=== PATIENT | female | born 1940 | race Caucasian/White ===

== ENCOUNTER 2017-01-06 18:09 | Inpatient (IN) | payer MEDICARE, OTHER ==
[2017-01-06] MEDS ORDERED: IPRATROPIUM/ALBUTEROL (0.5MG/3MG) NEB INH ONE (18:24)
[2017-01-06] MEDS ORDERED: 0.9% SODIUM CHLORIDE 250ML BAG IV ONE (18:24)
--- NOTE | 2017-01-06 18:24 | Emergency Department Record ---
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 On 12-26-16 she had an endovascular AAA repair/fem pop stents by Dr. Chahal at [facility]. She was sent home the next day. She has had a cough which has been progressively worsening and now is productive of green yellow sputum. The coughing spells are worsening and now her abdomen and chest ache when coughing spasms occur. She states she is dizzy when she changes position to stand or sit up. She has exertional SOB which is now increased in severity. She denies f,c,n,v,d. she has a history of [id number] three times, infer MA on her EKG, htn, chol elevation, and is a smoker since she was 19 years old. MD Complaint: Cough, Shortness of breath - Related Data Allergies Allergy/AdvReac Type Severity Reaction Status Date / Time fentanyl [FENTANYL] Allergy Mild VOMITING Unverified 02/11/16 13:43 citalopram hydrobromide AdvReac Mild SHORTNESS Verified 02/11/16 13:44 [From Celexa] OF BREATH diazepam [From Valium] AdvReac Mild SHORTNESS Verified 02/11/16 13:43 OF BREATH Review of Systems Reviewed: No additional complaints except as noted below Constitutional: Reports: As per HPI. Denies: Chills, Fever, Malaise, Night sweats, Weakness, Weight change Eyes: Reports: As per HPI. Denies: Eye discharge, Eye pain, Photophobia, Vision change ENT: Reports: As per HPI. Denies: Congestion, Dental pain, Ear pain, Epistaxis , Hearing loss, Throat pain Respiratory: Reports: As per HPI. Denies: Cough, Dyspnea, Hemoptysis, Stridor, Wheezes Cardiovascular: Reports: As per HPI. Denies: Arrhythmia, Chest pain, Dyspnea on exertion, Edema, Murmurs, Orthopnea, Palpitations, Paroxysmal nocturnal dyspnea, Rheumatic Fever, Syncope Endocrine: Reports: As per HPI. Denies: Fatigue, Heat or cold intolerance, Polydipsia, Polyuria Gastrointestinal: Reports: As per HPI. Denies: Abdominal pain, Constipation, Diarrhea, Hematemesis, Hematochezia, Melena, Nausea, Vomiting Genitourinary: Reports: As per HPI. Denies: Abnormal menses, Discharge, Dyspareunia, Dysuria, Frequency, Hematuria, Incontinence, Retention, Urgency Musculoskeletal: Reports: As per HPI. Denies: Arthralgia, Back pain, Gout, Joint swelling, Myalgia, Neck pain Skin: Reports: As per HPI. Denies: Bruising, Change in color, Change in hair/ nails, Lesions, Pruritus, Rash Neurological: Reports: As per HPI. Denies: Abnormal gait, Confusion, Headache, Numbness, Paresthesias, Seizure, Tingling, Tremors, Vertigo, Weakness Psychiatric: Reports: As per HPI. Denies: Anxiety, Auditory hallucinations, Depression, Homicidal thoughts, Suicidal thoughts, Visual hallucinations Hematological/Lymphatic: Reports: As per HPI. Denies: Anemia, Blood Clots, Easy bleeding, Easy bruising, Swollen glands Past Medical History - SOCIAL HISTORY Smoking Status: Current every day smoker - RESPIRATORY Hx Respiratory Disorders: Yes Hx COPD: Yes Comment:: benign nodule RLL - CARDIOVASCULAR Hx Cardio Disorders: Yes Hx Chest Pain: Yes (stress test neg 2012) Hx Heart Attack: Yes (shows up on EKGs but not sure when actually had) Hx Hypertension: Yes Comment:: AAA found recently 10/2015 - NEURO Hx Neuro Disorders: No - GI Hx GI Disorders: Yes Hx Ulcer: Yes Hx of Polyps: Yes Comment:: gas - Hx Genitourinary Disorders: Yes Hx Kidney Stones: Yes - ENDOCRINE Hx Endocrine Disorders: Yes Hx Thyroid Disease: Yes Comment:: hypoglycemia - MUSCULOSKELETAL Hx Musculoskeletal Disorders: Yes Hx Arthritis: Yes - PSYCH Hx Psych Problems: No - HEMATOLOGY/ONCOLOGY Hx Hematology/Oncology Disorders: No Family Medical History Hx Cancer: Mother, Brother/Sister *Cancer Comment: ovarian, lung Hx Diabetes: Brother/Sister Hx Heart Disease: Father *Heart Comment: [place] Physical Exam - General General Appearance: Alert, Oriented x3, Cooperative, Mild distress (speaks full sentences, no diaphoresis, talkative) - Head Head exam: Normal inspection - Eye Eye exam: Normal appearance, PERRL Pupils: Normal accommodation - ENT ENT exam: Normal exam, Mucous membranes moist, Normal external ear exam, Normal orophraynx, TM's normal bilaterally Ear exam: Normal external inspection. negative: External canal tenderness Nasal Exam: Normal inspection. negative: Discharge, Sinus tenderness Mouth exam: Normal external inspection, Tongue normal Teeth exam: Normal inspection. negative: Dental caries Throat exam: Normal inspection. negative: Tonsillar erythema, Tonsillomegaly, Tonsillar exudate - Neck Neck exam: Normal inspection, Full ROM. negative: Lymphadenopathy, Meningismus , Tenderness - Respiratory Respiratory exam: Decreased breath sounds, Prolonged expiratory, Rhonchi. negative: Respiratory distress - Cardiovascular Cardiovascular Exam: Regular rate, Normal rhythm, Normal heart sounds - GI/Abdominal GI/Abdominal exam: Soft, Normal bowel sounds. negative: Tenderness - Rectal Rectal exam: Deferred - exam: Deferred - Extremities Extremities exam: Normal inspection, Full ROM, Normal capillary refill. negative: Calf tenderness, Pedal edema, Tenderness - Back Back exam: Reports: Normal inspection, Full ROM. Denies: Muscle spasm, Rash noted, Tenderness - Neurological Neurological exam: Alert, Normal gait, Oriented X3, Reflexes normal - Psychiatric Psychiatric exam: Normal affect, Normal mood - Skin Skin exam: Dry, Intact, Normal color, Warm Course - Reevaluation(s) Reevaluation #1: Feeling improved after nebulizer. Ready to go to xray. 01/06/17 18:59 Reevaluation #2: spoke with Anuja CARR/ for Dr. Delgado who accepts patient for full admit. 01/06/17 20:19 Reevaluation #3: Discussed results with patient and her son who agrees with admission. Patient improved with IV fluids infusing. 01/06/17 20:22 Medical Decision Making - Management Options [facility] Management: Additional Work-up Planned (e.g. ADM/Transfer/OP Study) (admit) - Data Complexity MDM Data: Labs Ordered and/or Reviewed, X-Ray Ordered and/or Reviewed (CXR: RLL infiltrate/atelactasis per radiologist.), EKG Ordered and/or Reviewed - Lab Data Result diagrams: 01/06/17 18:34 01/06/17 18:34 - EKG Data -: EKG Interpreted by Sc EKG: No Acute Changes Disposition Disposition: Admit Clinical Impression: Right lower lobe pneumonia Qualifiers: Pneumonia type: due to unspecified organism Qualified Code(s): J18.1 - Lobar pneumonia, unspecified organism COPD (chronic obstructive pulmonary disease) Qualifiers: COPD type: COPD with acute lower respiratory infection Qualified Code(s): J44.0 - Chronic obstructive pulmonary disease with acute lower respiratory infection Disposition: Still a Patient at [facility] Decision to Admit: Admit from ER Decision to Admit Date: 01/06/17 Decision to Admit Time: 20:21 Accepting Physician: Dr. Delgado/Anuja Yang Time Discussed w/Accepting Physician: 20:21 Condition: (2) Stable Forms: Patient Portal Access
[2017-01-06 18:46] LABS: BASO % 0.2 % (0-6); EOS % 2.7 % (0-6); GRAN % 71.3 % (47-80); HEMATOCRIT 40.3 % (35.0-47.0); HEMOGLOBIN 13.1 gm/dl (11.6-16.0); LYMPH % 18.5 % (16-45); MEAN CELL VOLUME 85.6 fl (81-97); MEAN CORPUSCULAR HEMOGLOBIN 27.8 pg (27-33); MEAN CORPUSCULAR HGB CONC 32.5 g/dl (32-36); MEAN PLATELET VOLUME 12.2 fl (7.4-10.4); MONO % 7.3 % (0-9); PLATELET COUNT 237 K/uL (130-400); RED BLOOD COUNT 4.71 M/uL (3.80-5.40); RED CELL DISTRIBUTION WIDTH 13.9 % (11.5-14.5)
[2017-01-06] MEDS ORDERED: AZITHROMYCIN 500 MG TABLET PO ONE (18:54)
[2017-01-06] MEDS ORDERED: CEFTRIAXONE SODIUM 2 GM in 0.9 % SODIUM CHLORIDE 100ML 100 ML IVPB ONE (18:54)
[2017-01-06 18:55] LABS: INR 0.95; PROTHROMBIN TIME (PATIENT) 10.7 SECONDS (9.5-12.1)
[2017-01-06 18:56] LABS: LACTIC ACID 0.9 mmol/L (0.7-2.1)
[2017-01-06 18:58] LABS: BLOOD UREA NITROGEN 16 mg/dL (7-17); CREATINE PHOSPHOKINASE 47 U/L (30-135); CREATININE 0.7 mg/dL (0.52-1.04); EST GLOMERULAR FILTRATION RATE > 60 ml/min; GLUCOSE,RANDOM 91 mg/dL (70-110)
[2017-01-06 19:10] LABS: CKMB 1.2 ug/L (0-6); TROPONIN I < 0.012 ng/mL (0.00-0.034)
[2017-01-06] MEDS ORDERED: 0.9 % SODIUM CHLORIDE 500ML 500 ML IV SCH (19:15)
[2017-01-06] MEDS ORDERED: METHYLPREDNISOLONE PF 125MG/VIAL IVP ONE (20:19)
[2017-01-06 20:31] LABS: URINE APPEARANCE CLEAR; URINE BILIRUBIN NEGATIVE (NEGATIVE); URINE BLOOD TRACE-I (NEGATIVE); URINE COLOR YELLOW; URINE GLUCOSE (UA) NEGATIVE (NEGATIVE); URINE KETONE NEGATIVE (NEGATIVE); URINE LEUKOCYTE ESTERASE SMALL (NEGATIVE); URINE NITRITE NEGATIVE (NEGATIVE); URINE PROTEIN NEGATIVE (NEGATIVE); URINE UROBILINOGEN 0.2 E.U./dL (0.20 - 1.00)
[2017-01-06 20:44] LABS: URINE BACTERIA FEW; URINE RBC 0 - 2 (NONE SEEN); URINE SQUAMOUS EPITHELIAL CELL 0 - 2 /hpf
[2017-01-06] MEDS ORDERED: ACETAMINOPHEN 500 MG TABLET PO PRN (21:01)
[2017-01-06] MEDS ORDERED: CEFTRIAXONE SODIUM 2 GM in 0.9 % SODIUM CHLORIDE 100ML 100 ML IVPB SCH (21:01)
[2017-01-06] MEDS ORDERED: LEVOFLOXACIN/D5W 750 MG/150 ML BAG IVPB SCH (21:01)
[2017-01-06] MEDS ORDERED: 0.9 % SODIUM CHLORIDE 1000ML 1,000 ML IV PRN (21:01)
[2017-01-06] MEDS ORDERED: ASPIRIN 81 MG CHEWABLE TABLET PO SCH (22:00)
[2017-01-06] MEDS ORDERED: SIMVASTATIN 20 MG TABLET PO SCH (22:00)
[2017-01-06] MEDS ORDERED: CLOPIDOGREL 75MG TABLET PO SCH (22:00)
[2017-01-06] MEDS ORDERED: LISINOPRIL 10 MG TABLET PO SCH (22:00)
[2017-01-06] MEDS ORDERED: CARVEDILOL 3.125 MG TABLET PO SCH (22:00)
[2017-01-06] MEDS: IPRATROPIUM/ALBUTEROL (0.5MG/3MG) NEB INH SCH (22:17)
[2017-01-07 05:55] LABS: HEMATOCRIT 37.9 % (35.0-47.0); HEMOGLOBIN 12.5 gm/dl (11.6-16.0); MEAN CELL VOLUME 85.4 fl (81-97); MEAN CORPUSCULAR HEMOGLOBIN 28.2 pg (27-33); PLATELET COUNT 220 K/uL (130-400); RED BLOOD COUNT 4.44 M/uL (3.80-5.40); RED CELL DISTRIBUTION WIDTH 13.7 % (11.5-14.5); WHITE BLOOD COUNT W/O DIFF 9.6 K/uL (4.2-12.2)
[2017-01-07] MEDS: IPRATROPIUM/ALBUTEROL (0.5MG/3MG) NEB INH SCH ×2 (06:09→10:11)
[2017-01-07] MEDS ORDERED: LEVOTHYROXINE SODIUM 75 MCG TABLET PO SCH (07:00)
--- NOTE | 2017-01-07 08:43 | History & Physical ---
History of Present Illness - Date of Service Date of Service for History & Physical: 01/07/17 - History of Present Illness Admitting Diagnosis: RLL pneumonia; COPD exacerbation History of Present Illness: 76 yo female admitted for RLL pneumonia. PMHx of COPD, HTN, CAD, hypothyroidism , HLD, carotid stenosis, and smoker (1/2-1ppd x ~60 years). Endovascular AAA repair/ femoral pop stents by Dr. Chahal out of [place] on 12/26/16. Patient presented to our ED for green productive cough. onset 2 days ago. alleviated by nothing associated symptoms include fatigue. Temp 99.1, RR 20, O2 sat 96% on RA upon presentation. normal wbc, 92% neutrophils. TSH 6.10. CE negative. UA: small leuks, neg nitrites, cx sent. BC and sputum cx obtained. EKG: NSR, old inferior infarct. CXR: R lung base atelectasis. 01/07/17: this morning, patient is up walking the halls. states she's feeling much better. tolerating ambulation well. continues to cough up green sputum. denies shortness of breath, chest pain, fever, chills, n/v, abd pain, change in bowel habits or unintentional weight loss. Patient very anxious to get home. states she can't get good sleep as our beds are uncomfortable. No sick contacts or recent travel. Hospitalized 12/26/16 for 24 hours after AAA repair/ femoral pop stent placement. Has smoked 1/2-2 ppd since she was 19 yo. Is not currently on any COPD medications. Travel Screening - Travel/Exposure Within Last 30 Days Have you traveled within the last 30 days?: No - Travel/Exposure Within Last Year Have you traveled outside the [place] in the last year?: No - Additonal Travel Details Have you been exposed to anyone with a communicable illness?: No - Travel Symptoms Symptom Screening: None Review of Systems Constitutional: Reports: As per HPI. Denies: Chills, Fever, Malaise, Night sweats, Weakness, Weight change Eyes: Reports: As per HPI. Denies: Eye discharge, Eye pain, Photophobia, Vision change ENT: Reports: As per HPI. Denies: Congestion, Dental pain, Ear pain, Epistaxis , Hearing loss, Throat pain Respiratory: Reports: As per HPI. Denies: Cough, Dyspnea, Hemoptysis, Stridor, Wheezes Cardiovascular: Reports: As per HPI. Denies: Arrhythmia, Chest pain, Dyspnea on exertion, Edema, Murmurs, Orthopnea, Palpitations, Paroxysmal nocturnal dyspnea, Rheumatic Fever, Syncope Endocrine: Reports: As per HPI. Denies: Fatigue, Heat or cold intolerance, Polydipsia, Polyuria Gastrointestinal: Reports: As per HPI. Denies: Abdominal pain, Constipation, Diarrhea, Hematemesis, Hematochezia, Melena, Nausea, Vomiting Genitourinary: Reports: As per HPI. Denies: Abnormal menses, Discharge, Dyspareunia, Dysuria, Frequency, Hematuria, Incontinence, Retention, Urgency Musculoskeletal: Reports: As per HPI. Denies: Arthralgia, Back pain, Gout, Joint swelling, Myalgia, Neck pain Skin: Reports: As per HPI. Denies: Bruising, Change in color, Change in hair/ nails, Lesions, Pruritus, Rash Neurological: Reports: As per HPI. Denies: Abnormal gait, Confusion, Headache, Numbness, Paresthesias, Seizure, Tingling, Tremors, Vertigo, Weakness Psychiatric: Reports: As per HPI. Denies: Anxiety, Auditory hallucinations, Depression, Homicidal thoughts, Suicidal thoughts, Visual hallucinations Hematological/Lymphatic: Reports: As per HPI. Denies: Anemia, Blood Clots, Easy bleeding, Easy bruising, Swollen glands Past Medical History - SOCIAL HISTORY Smoking Status: Current every day smoker Alcohol Use: Rare, Occassional Drug Use: None - RESPIRATORY Hx Respiratory Disorders: Yes Hx COPD: Yes Comment:: benign nodule RLL - CARDIOVASCULAR Hx Cardio Disorders: Yes Hx Chest Pain: Yes (stress test neg 2012) Hx Heart Attack: Yes (shows up on EKGs but not sure when actually had) Hx Hypertension: Yes Comment:: AAA found recently 10/2015 - NEURO Hx Neuro Disorders: No - GI Hx GI Disorders: Yes Hx Ulcer: Yes Hx of Polyps: Yes Comment:: gas - Hx Genitourinary Disorders: Yes Hx Kidney Stones: Yes - ENDOCRINE Hx Endocrine Disorders: Yes Hx Thyroid Disease: Yes Comment:: hypoglycemia - MUSCULOSKELETAL Hx Musculoskeletal Disorders: Yes Hx Arthritis: Yes - PSYCH Hx Psych Problems: No - HEMATOLOGY/ONCOLOGY Hx Hematology/Oncology Disorders: No Family Medical History Any Significant Family History?: No Hx Cancer: Mother, Brother/Sister *Cancer Comment: ovarian, lung Hx Diabetes: Brother/Sister Hx Heart Disease: Father *Heart Comment: [place] H&P Meds/Allergies - Allergies Allergies: Allergies Allergy/AdvReac Type Severity Reaction Status Date / Time fentanyl [FENTANYL] Allergy Mild VOMITING Unverified 02/11/16 13:43 citalopram hydrobromide AdvReac Mild SHORTNESS Verified 02/11/16 13:44 [From Celexa] OF BREATH diazepam [From Valium] AdvReac Mild SHORTNESS Verified 02/11/16 13:43 OF BREATH - Home Medications Home Medications Medication Instructions Recorded Confirmed Last Taken Aspirin [Aspir-Low] 81 mg PO QHS 01/06/17 01/06/17 Unknown Carvedilol [Coreg] 3.125 mg PO BID 01/06/17 01/06/17 Unknown Clopidogrel Bisulfate [Clopidogrel] 75 mg PO QHS 01/06/17 01/06/17 Unknown Hydrochlorothiazide 25 mg PO QAM 01/06/17 01/06/17 Unknown Levothyroxine Sodium [Synthroid] 75 mcg PO DAILY 01/06/17 01/06/17 Unknown Lisinopril [Lisinopril] 10 mg PO BID 01/06/17 01/06/17 Unknown Simvastatin [Simvastatin] 20 mg PO QHS 01/06/17 01/06/17 Unknown - Active Medications Active Medications: Current Medications Acetaminophen (Tylenol 500mg Tab) 500 mg PO Q6H PRN PRN Reason: PAIN/TEMP Albuterol/Ipratropium (Duoneb) 3 ml INH RESP.Q4H.[facility] Last Admin: 01/07/17 06:09 Dose: 3 ml Aspirin (Aspirin Chewable) 81 mg PO QHS [facility] Carvedilol (Coreg) 3.125 mg PO BID [facility] Last Admin: 01/06/17 22:17 Dose: 3.125 mg Clopidogrel Bisulfate (Plavix) 75 mg PO DAILY [facility] Last Admin: 01/06/17 22:18 Dose: 75 mg Hydrochlorothiazide (Hctz 25mg) 25 mg PO DAILY [facility] Sodium Chloride () 500 mls @ 0 mls/hr IV .Q0M [facility] PRN Reason: Wide Open Last Infusion: 01/06/17 20:45 Dose: Infused Sodium Chloride () 1,000 mls @ 125 mls/hr IV .Q8H PRN PRN Reason: LARGE VOLUME IV Last Infusion: 01/07/17 07:18 Dose: 125 mls/hr Levofloxacin/Dextrose (Levaquin 750mg Ivpb) 750 mg in 150 mls @ 125 mls/hr IVPB Q24H [facility] Stop: 01/11/17 21:02 Last Infusion: 01/07/17 00:34 Dose: Infused Ceftriaxone Sodium 2 gm/ (Sodium Chloride) 100 mls @ 200 mls/hr IVPB Q24H [facility] Stop: 01/12/17 21:31 Levothyroxine Sodium (Synthroid) 75 mcg PO DAILYTHY [facility] Last Admin: 01/07/17 06:29 Dose: 75 mcg Lisinopril (Zestril) 10 mg PO BID [facility] Last Admin: 01/06/17 22:19 Dose: 10 mg Methylprednisolone Sodium Succinate (Solu-Medrol) 60 mg IVP DAILY [facility] Simvastatin (Zocor) 20 mg PO QHS [facility] Last Admin: 01/06/17 22:16 Dose: 20 mg Physical Exam - Vital Signs Vital Signs: Vital Signs - Last 24 Hrs Temp Pulse Pulse Resp BP BP Pulse Ox 01/07/17 06:40 79 20 100 01/07/17 05:01 98.1 F 75 22 132/70 94 L 01/06/17 21:04 18 01/06/17 20:45 99.1 F 83 22 139/64 96 01/06/17 20:41 88 18 148/82 95 - General General Appearance: Alert, Oriented x3, Cooperative, No acute distress - Head Head exam: Normal inspection - Eye Eye exam: Normal appearance, PERRL Pupils: Normal accommodation - ENT ENT exam: Normal exam, Mucous membranes moist, Normal external ear exam, Normal orophraynx, TM's normal bilaterally Ear exam: Normal external inspection. negative: External canal tenderness Nasal Exam: Normal inspection. negative: Discharge, Sinus tenderness Mouth exam: Normal external inspection, Tongue normal Teeth exam: Normal inspection. negative: Dental caries Throat exam: Normal inspection. negative: Tonsillar erythema, Tonsillomegaly, Tonsillar exudate - Neck Neck exam: Normal inspection, Full ROM. negative: Lymphadenopathy, Meningismus , Tenderness - Respiratory Respiratory exam: Decreased breath sounds, Prolonged expiratory, Rhonchi. negative: Respiratory distress - Cardiovascular Cardiovascular Exam: Regular rate, Normal rhythm, Normal heart sounds, Other (B/ L carotid bruits) - GI/Abdominal GI/Abdominal exam: Soft, Normal bowel sounds. negative: Tenderness - Rectal Rectal exam: Deferred - exam: Deferred - Extremities Extremities exam: Normal inspection, Full ROM, Normal capillary refill. negative: Calf tenderness, Pedal edema, Tenderness - Back Back exam: Reports: Normal inspection, Full ROM. Denies: Muscle spasm, Rash noted, Tenderness - Neurological Neurological exam: Alert, Normal gait, Oriented X3, Reflexes normal - Psychiatric Psychiatric exam: Normal affect, Normal mood - Skin Skin exam: Dry, Intact, Normal color, Warm Results - Labs Result Diagrams: 01/07/17 05:45 01/06/17 18:34 Labs Last 24 Hours: Laboratory Results - last 24 hr 01/07/17 05:45 WBC 9.6 RBC 4.44 Hgb 12.5 Hct 37.9 MCV 85.4 MCH 28.2 MCHC 33.0 RDW 13.7 Plt Count 220 MPV 12.0 H Neutrophils % 92.0 H Eosinophils % Not Reportable Basophils % Not Reportable Lymphocytes 4.0 L Monocytes 4.0 VTE H&P Assessment - Risk for VTE Risk for VTE: Yes Risk Level: Low Risk Assessment Date: 01/07/17 Risk Assessment Time: 09:00 VTE Orders Placed or Will Be Placed: No VTE Reason for No Prophylaxis: Not Indicated Plan - Inpatient Certification Inpatient Certification: Admit to inpatient care: Based on my medical assessment, after consideration of patient's risk factors (age, co-morbidities and patient presenting symptoms and acuity), I expect that this patient will remain in the hospital greater than or equal to two midnights and that the services needed warrant inpatient care because: Patient Risk Factors: [] Estimated length of stay: [] The patient may reasonably be expected to be discharged or transferred to a hospital within 96 hours after admission to [facility]. Services needed: [] Post hospital care (if known): [] I certify that my determination is in accordance with my understanding of Medicare requirements for reasonable and necessary inpatient services. - Detailed Diagnosis and Plan (1) Right lower lobe pneumonia Current Visit: Yes Status: Acute Qualifiers: Pneumonia type: due to unspecified organism Qualified Code(s): J18.1 - Lobar pneumonia, unspecified organism Base Code: J18.1 - LOBAR PNEUMONIA, UNSPECIFIED ORGANISM Comment: 01/07/17: CXR : R lung base atelectasis. normal wbc, neut 92%. O2 sat 100%. - BC, sputum cx pending - continue PO Levaquin 750 mg x 5 days - Duo neb treatment QID WA - 60 mg IV Solumedrol - smoking cessation encouraged - benzonate prn for cough - monitor for any worsening symptoms, fever, chills, sob or cp. (2) Elevated TSH Current Visit: Yes Status: Acute Base Code: R94.6 - ABNORMAL RESULTS OF THYROID FUNCTION STUDIES Comment: 01/07/17: TSH 6.10. Patient will continue current levothyroxine dose and follow up with PCP re this. (3) DVT prophylaxis Current Visit: Yes Status: Acute Base Code: [id number] - Comment: 01/07/17: low risk: age. patient ambulating the hallways. (4) Full code status Current Visit: Yes Status: Acute Base Code: Z78.9 - OTHER SPECIFIED HEALTH STATUS Comment: 01/07/17: pt is full code (5) COPD (chronic obstructive pulmonary disease) Current Visit: Yes Status: Acute Qualifiers: COPD type: COPD with acute lower respiratory infection Qualified Code(s): J44.0 - Chronic obstructive pulmonary disease with acute lower respiratory infection Base Code: J44.9 - CHRONIC OBSTRUCTIVE PULMONARY DISEASE, UNSPECIFIED Comment : 01/07/17: - received 125 mg of solu medrol in the ER - continue 60 mg of IV solu medrol during admission - Duo neb treatments QID WA - supplemental O2 prn - Levaquin 750 mg PO daily x 5 days - benzonate 100 mg tid prn for cough - monitor for any fever, chills, sob, cp, worsening cough - sputum, BC pending.
[2017-01-07] MEDS ORDERED: METHYLPREDNISOLONE PF 125MG/VIAL IVP SCH (10:00)
[2017-01-07] MEDS ORDERED: HYDROCHLOROTHIAZIDE 25 MG TABLET PO SCH (10:00)
--- NOTE | 2017-01-07 10:03 | Discharge Summary ---
Providers Discharge Summary Date: 01/07/17 Date of admission: 01/06/17 20:33 Expected Date of Discharge: 01/07/17 Attending physician: DAMOEN LOPEZ Primary care physician: Heaven Jorgensen Physical Exam - Vital Signs Vital Signs: Vital Signs - Last 24 Hrs Temp Pulse Pulse Resp BP BP Pulse Ox 01/07/17 06:40 79 20 100 01/07/17 05:01 98.1 F 75 22 132/70 94 L 01/06/17 21:04 18 01/06/17 20:45 99.1 F 83 22 139/64 96 01/06/17 20:41 88 18 148/82 95 - General General Appearance: Alert, Oriented x3, Cooperative, No acute distress - Head Head exam: Normal inspection - Eye Eye exam: Normal appearance, PERRL Pupils: Normal accommodation - ENT ENT exam: Normal exam, Mucous membranes moist, Normal external ear exam, Normal orophraynx, TM's normal bilaterally Ear exam: Normal external inspection. negative: External canal tenderness Nasal Exam: Normal inspection. negative: Discharge, Sinus tenderness Mouth exam: Normal external inspection, Tongue normal Teeth exam: Normal inspection. negative: Dental caries Throat exam: Normal inspection. negative: Tonsillar erythema, Tonsillomegaly, Tonsillar exudate - Neck Neck exam: Normal inspection, Full ROM. negative: Lymphadenopathy, Meningismus , Tenderness - Respiratory Respiratory exam: Decreased breath sounds, Prolonged expiratory, Rhonchi. negative: Respiratory distress - Cardiovascular Cardiovascular Exam: Regular rate, Normal rhythm, Normal heart sounds, Other (B/ L carotid bruits) - GI/Abdominal GI/Abdominal exam: Soft, Normal bowel sounds. negative: Tenderness - Rectal Rectal exam: Deferred - exam: Deferred - Extremities Extremities exam: Normal inspection, Full ROM, Normal capillary refill. negative: Calf tenderness, Pedal edema, Tenderness - Back Back exam: Reports: Normal inspection, Full ROM. Denies: Muscle spasm, Rash noted, Tenderness - Neurological Neurological exam: Alert, Normal gait, Oriented X3, Reflexes normal - Psychiatric Psychiatric exam: Normal affect, Normal mood - Skin Skin exam: Dry, Intact, Normal color, Warm Hospitalization - Hospitalization Admission Diagnosis: RLL pneumonia; COPD exacerbation - Problem List/Discharge Diagnosis (1) Right lower lobe pneumonia Current Visit: Yes Status: Acute Discharge Diagnosis: Pneumonia type: due to unspecified organism Qualified Code(s): J18.1 - Lobar pneumonia, unspecified organism Base Code: J18.1 - LOBAR PNEUMONIA, UNSPECIFIED ORGANISM Comment: 01/07/17: CXR : R lung base atelectasis. normal wbc, neut 92%. O2 sat 100%. - BC, sputum cx pending - continue PO Levaquin 750 mg x 3 days - Duo neb treatment QID - completed steroid- 50 mg PO Prednisone - smoking cessation encouraged - benzonate prn for cough - monitor for any worsening symptoms, fever, chills, sob or cp. Return if needed. - follow up with Dr. Jorgensen in 3-5 days for recheck of symptoms. (2) Elevated TSH Current Visit: Yes Status: Acute Base Code: R94.6 - ABNORMAL RESULTS OF THYROID FUNCTION STUDIES Comment: 01/07/17: TSH 6.10. continue current levothyroxine dose and follow up with PCP re this. (3) Full code status Current Visit: Yes Status: Acute Base Code: Z78.9 - OTHER SPECIFIED HEALTH STATUS Comment: 01/07/17: pt remained full code (4) COPD (chronic obstructive pulmonary disease) Current Visit: Yes Status: Acute Discharge Diagnosis: COPD type: COPD with acute lower respiratory infection Qualified Code(s): J44.0 - Chronic obstructive pulmonary disease with acute lower respiratory infection Base Code: J44.9 - CHRONIC OBSTRUCTIVE PULMONARY DISEASE, UNSPECIFIED Comment : 01/07/17: - received 125 mg of solu medrol in the ER - continue 50 mg of PO Prednisone as outpatient - Duo neb treatments QID - Levaquin 750 mg PO daily x 3 days - benzonate 100 mg tid prn for cough - monitor for any fever, chills, sob, cp, worsening cough - sputum, BC pending. - repeat CXR within the next 3-5 days. - contact Dr. Jorgensen tomorrow to schedule a follow hospital visit in 3-5 days. - Hospitalization Course Disposition: Home, Self-Care Hospital Course: 76 yo female admitted for RLL pneumonia. PMHx of COPD, HTN, CAD, hypothyroidism , HLD, carotid stenosis, and smoker (1/2-1ppd x ~60 years). Endovascular AAA repair/ femoral pop stents by Dr. Chahal out of [facility] on 12/26/16. Patient presented to our ED for green productive cough. onset 2 days ago. alleviated by nothing associated symptoms include fatigue. Temp 99.1, RR 20, O2 sat 96% on RA upon presentation. normal wbc, 92% neutrophils. TSH 6.10. CE negative. UA: small leuks, neg nitrites, cx sent. BC and sputum cx obtained. EKG: NSR, old inferior infarct. CXR: R lung base atelectasis. 01/07/17: this morning, patient is up walking the halls. states she's feeling much better. tolerating ambulation well. continues to cough up green sputum. denies shortness of breath, chest pain, fever, chills, n/v, abd pain, change in bowel habits or unintentional weight loss. Patient very anxious to get home. states she can't get good sleep as our beds are uncomfortable. No sick contacts or recent travel. Hospitalized 12/26/16 for 24 hours after AAA repair/ femoral pop stent placement. Has smoked 1/2-2 ppd since she was 19 yo. Is not currently on any COPD medications. PCP: Dr. Jorgensen Abnormal Labs: Abnormal Lab Results 01/07/17 Range/Units 05:45 MPV 12.0 H (7.4-10.4) fl Neutrophils % 92.0 H (47-80) % Lymphocytes 4.0 L (16-45) % Condition at Discharge: (2) Stable Discharge Medications - Discharge Medications Prescriptions: Benzonatate [Tessalon] 1 cap PO Q8H PRN #30 cap PRN Reason: Cough Ipratropium/Albuterol [Duoneb] 3 ml IH Q4H #120 ampul.neb. Levofloxacin [Levaquin] 750 mg PO DAILY #3 tab Prednisone 50 mg PO DAILY #5 tablet Home Medications: Ambulatory Orders Aspirin [Aspir-Low] 81 mg PO QHS 01/06/17 [Last Taken Unknown] Carvedilol [Coreg] 3.125 mg PO BID 01/06/17 [Last Taken Unknown] Clopidogrel Bisulfate [Clopidogrel] 75 mg PO QHS 01/06/17 [Last Taken Unknown] Hydrochlorothiazide 25 mg PO QAM 01/06/17 [Last Taken Unknown] Levothyroxine Sodium [Synthroid] 75 mcg PO DAILY 01/06/17 [Last Taken Unknown] Lisinopril 10 mg PO BID 01/06/17 [Last Taken Unknown] Simvastatin 20 mg PO QHS 01/06/17 [Last Taken Unknown] Benzonatate [Tessalon] 1 cap PO Q8H PRN #30 cap 01/07/17 [Last Taken Unknown] Ipratropium/Albuterol [Duoneb] 3 ml IH Q4H #120 ampul.neb. 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 Levaquin 750 mg x 3 days Prednisone 50 mg PO x 3 days Benzonate 100 mg three times daily as needed for cough Duo neb treatment four times daily SMOKING CESSATION Return for repeat chest x ray in 3-5 days follow up w/ Dr. Jorgensen in 3-5 days for recheck of symptoms return to the ED re any new or worsening symptoms (i.e fever >102, worsening cough, shortness of breath, etc).
[2017-01-07] MEDS ORDERED: CEFTRIAXONE SODIUM 2 GM in 0.9 % SODIUM CHLORIDE 100ML 100 ML IVPB SCH (21:30)
[2017-01-07] MEDS ORDERED: ASPIRIN 81 MG CHEWABLE TABLET PO SCH (22:00)
--- NOTE | 2017-01-08 07:35 | RADIOLOGY REPORT ---
EXAM: CHEST, TWO VIEWS HISTORY: PATIENT HAS PRODUCTIVE COUGH TIMES ONE DAY. TECHNIQUE: Two views of the chest are provided along with the comparison study dated 12/09/12. FINDINGS: The cardiac silhouette is within normal limits for size and contour. Tortuosity and ectasia of the thoracic aorta is again noted. Linear subsegmental atelectasis at the right lung base is noted. No focal consolidation or pleural effusion is noted. No pneumothorax is noted. IMPRESSION: LINEAR SUBSEGMENTAL ATELECTASIS AT THE RIGHT LUNG BASE IS NOTED DISCUSSED ABOVE. FOLLOW-UP PA AND LATERAL VIEWS OF THE CHEST CAN BE OBTAINED UNTIL RESOLUTION OF FINDINGS. JOB NUMBER: [id number] MTDD
== END 2017-01-07 10:20 | disposition home or self-care (01) | DRG 194 ==
LOC: ER 18:09 → MEDSURG 20:33
PROVIDERS: ADMIT Family Medicine; ATTEND Family Medicine
DX: J18.1 Lobar pneumonia, unspecified organism (principal); J44.1 Chronic obstructive pulmonary disease with (acute) exacerbation; I10 Essential (primary) hypertension; R94.6 Abnormal results of thyroid function studies; Z78.9 Other specified health status; E03.9 Hypothyroidism, unspecified; F17.200 Nicotine dependence, unspecified, uncomplicated; I65.29 Occlusion and stenosis of unspecified carotid artery
CPT/HCPCS: 71020; 80048; 81001; 82310; 82550; 82553; 83605; 83880; 84443; 84484; 85025; 85027; 85610; 87880; 93005; 93010; 94640; 96365; 96375; 99223; 99285; J1956; J2930; J7040